=== PATIENT | female | born 1955 | race Caucasian/White ===

== ENCOUNTER 2020-02-07 14:07 | Outpatient (CLI) | payer MEDICARE, SELFPAY ==
--- NOTE | 2020-02-07 14:31 | ECG_ITS ---
Measurements Intervals [place] Rate: 70 P: 56 KS: 149 QRS: 80 QRSD: 81 T: 45 QT: 365 QTc: 396 Interpretive Statements SINUS RHYTHM BASELINE ARTIFACT- I, III, AVF NORMAL ECG Electronically Signed On 02-07-2020 15:07:23 QUANTITATIVE MANAGER by Eddie Cotter D.O.
== END 2020-02-07 14:08 | disposition home or self-care (01) ==
LOC: ANHCARD 14:11
PROVIDERS: PCP Emergency Medicine; Visit Provider Emergency Medicine
DX: Z01.810 Encounter for preprocedural cardiovascular examination (principal)
CPT/HCPCS: 93005

== ENCOUNTER → 2020-04-30 18:04 | Outpatient (CLI) | payer MEDICARE, SELFPAY ==
--- NOTE | ~2020-04-30 | DEXA_ITS ---
Bone Density Report Name: Naomi Mccall Age: 65 Sex: Female Ethnicity: White Date of : 1955 Indication: postmenopausal; screening for osteoporosis; Referring Provider: YANG AVILEZ Study: Bone densitometry was performed. Exam Date: April 30, 2020 Accession number: [id number] Bone Density: Region BMD T-score Z-score Classification AP Spine (L1-L4) 0.901 -1.3 0.6 Osteopenia Femoral Neck (Left) 0.761 -0.8 0.8 Normal Total Hip (Left) 0.873 -0.6 0.8 Normal Femoral Neck (Right) 0.732 -1.1 0.6 Osteopenia Total Hip (Right) 0.823 -1.0 0.4 Normal Total Hip Mean 0.848 -0.8 0.6 Normal World Health Organization criteria for BMD impression classify patients as: Normal (T-score at or above -1.0), Osteopenia (T-score between -1.0 and -2.5), or Osteoporosis (T-score at or below -2.5). 10-year Fracture Risk(1): Major Osteoporotic Fracture 8.5% Hip Fracture 0.8% Reported Risk Factors: [place] (), Neck BMD=0.732, BMI=24.1 (1) FRAX(R) Version 3.08. Fracture probability calculated for an untreated patient. Fracture probability may be lower if the patient has received treatment. Clinical Information Provided by Patient: Has used the following medications: Vitamin D, Calcium Patient maximum height was 65 Menopause Age: 51 Drinks caffeinated beverages Onset of menses at age 11 Number of children 3 Impression: The patient has low bone mass, based on the Total Spine T-score. The patient has an estimated ten-year risk of hip fracture of 0.8% and an estimated ten-year risk of major fracture of 8.5%, based on the WHO FRAX algorithm. Discussion: BONE DENSITY IS LOW AT ONE OR MORE SKELETAL SITES. This patient's lowest T-score is low at one or more skeletal sites. It meets the World Health Organization's (WHO) criteria for ?low bone mass? (T-score between -1.0 and -2.5). The patient's 10-year risk of fracture as calculated by FRAX is less than the threshold where pharmacological therapy is recommended by the National Osteoporosis Foundation (NOF). However, all treatment decisions require clinical judgment and consideration of individual patient factors, including patient preferences, comorbidities, previous drug use, risk factors not captured in the FRAX model (e.g., frailty, falls, vitamin D deficiency, increased bone turnover, interval significant decline in bone density) and possible under or overestimation of fracture risk by FRAX. The patient should follow a healthful lifestyle (good nutrition with adequate calcium and vitamin D, and appropriate weight-bearing exercise). Follow-Up: Consider repeating this study in 2 to 3 years to reassess this patient's status, or sooner if there is some new clinical indication. Reported by: [facility] on 04/30/2020 6:32:00 PM.
== END ==
PROVIDERS: Visit Provider Emergency Medicine
DX: Z13.820 Encounter for screening for osteoporosis (principal); M85.851 Other specified disorders of bone density and structure, right thigh
CPT/HCPCS: 77080

== ENCOUNTER → 2020-06-13 01:10 | Outpatient (CLI) | payer MEDICARE, SELFPAY ==
[2020-06-13 18:53] LABS: SARS-CoV-2 RNA PCR Positive
== END ==
PROVIDERS: Visit Provider Internal Medicine Gastroenterology
DX: Z01.812 Encounter for preprocedural laboratory examination (principal); U07.1 COVID-19
CPT/HCPCS: C9803; U0003; U0005

== ENCOUNTER 2020-06-16 01:59 | Day surgery (SDC) | payer MEDICARE, SELFPAY ==
[2020-06-04 10:29] VITALS: BMI 23.8
[2020-06-16 07:21] VITALS: BP 123/82; PULSE 91; RESP 16; TEMP 36.3; O2SAT 98; BMI 23.3
[2020-06-16] MEDS: LACTATED RINGERS 1,000 ML 150 ML IV CONT (07:36)
--- NOTE | 2020-06-16 07:57 | WPDANESEPPF ---
Anes - Initial Pre Proc Eval Procedure: Operation Date: 06/16/20 08:30 Proposed Procedures p Colonoscopy - Ravi Headley MD Date/Time: 06/16/20 07:57 Surgeon: Ravi Headley MD Pre Op Diagnosis: positive Cologuard Patient Data Age: 65 Gender: F Height: 5 ft 5 in Weight: 63.7 kg Last Vital Signs Temp 97.4 F L 06/16/20 07:21 Pulse 91 06/16/20 07:21 Resp 16 06/16/20 07:21 BP 123/82 06/16/20 07:21 Pulse Ox 98 06/16/20 07:21 Allergies Allergy/AdvReac Type Severity Reaction Status Date / Time Penicillins Allergy Mild RASH Verified 06/16/20 07:20 Home Medications Medication Instructions Recorded Confirmed Type Adult Probiotic 1 tab-cap PO DAILY 06/04/20 06/04/20 History [id number]-rbsr-wrm-[id number]-agb 1 tablet PO DAILY 06/04/20 06/04/20 History [Caltrate 600-D Plus Minerals] estradiol 3 applic VAGINAL WEEKLY 06/04/20 06/04/20 History krill oil 50 mg PO DAILY 06/04/20 06/04/20 History melatonin 5 mg PO HS 06/04/20 06/04/20 History kxoldfac-khd-ppgm-FA-lutein 1 tablet PO DAILY 06/04/20 06/04/20 History [Centrum Silver Women] spironolactone 100 mg PO DAILY 06/04/20 06/04/20 History tretinoin 1 applic TOPICAL DAILY 06/04/20 06/04/20 History valerian root 1,590 mg PO HS 06/04/20 06/04/20 History vitamin B complex [Super B Complex] 1 cap PO DAILY 06/04/20 06/04/20 History Patient hx anesthesia problems: none Family hx anesthesia problems: none PMFSH Past Medical History Medical History (Updated 06/16/20 @ 07:57 by Raman Gilbert MD) Arthritis Social History Social History Smoking packs per day: 1 Smoking cigarettes per day: 20.0 Years smoked: 7 Smoking pack-years: 7.00 Smoking status: Former smoker Tobacco type: cigarettes Alcohol intake: current Drinks per week: 6 Alcohol use details: WINE Substance use: never Substance use type: does not use Living arrangements: with family Spiritual care concerns: No Anes - Eval Final PreProcedure Day of Procedure 06/16/20 07:57 Patient weight: normal Heart: regular rate and rhythm Lungs: clear to auscultation Airway: Mallampati scale class II Neurological: alert and oriented Last oral intake: >/= 8 hours ASA classification: II Emergent: no Anesthetic plan: proceed Anesthesia type and monitoring: general GIVS and standard monitoring Informed Consent: The patient's anesthetic plan and its attendant risks and benefits were discussed with the patient/family/POA. Questions were solicited and answers provided to the satisfaction of the patient/family/POA.
--- NOTE | 2020-06-16 08:23 | PM.HPGS ---
History of Present Illness History of Present Illness Consent: Risks, benefits, and alternatives have been discussed and questions answered. Patient agrees to proceed with procedure. Chief complaint: positive Cologuard Narrative: Naomi Mccall is a 65 year old female with positive cologuard, last colonoscopy 2016 Review of Systems Constitutional: Constitutional: Denies headache(s) and Denies weakness Eyes: Eyes: Denies blurry vision ENT: Reports Normal hearing present, Denies headache(s) and Denies neck pain Cardiovascular: Cardiovascular: Denies chest pain and Denies dyspnea Respiratory: Respiratory: Denies dyspnea Gastrointestinal: Gastrointestinal: Reports no additional gastrointestinal complaints Genitourinary: Genitourinary: Denies dysuria Musculoskeletal: Musculoskeletal: Denies neck pain Integumentary/Breasts: Skin/Breast: Denies dry skin Neurologic: Reports Normal hearing present, Denies headache(s) and Denies weakness Psychiatric: Psychiatric: Denies anxiety Endocrine: Endocrine: Denies change in body appearance Hematologic/Lymphatic: Hematologic/Lymphatic: Denies easy bleeding Allergic/Immunologic: Allergic/Immunologic: Denies urticaria PMFSH Past Medical History Medical History (Updated 06/16/20 @ 08:24 by Ravi Headley MD) Arthritis Positive colorectal cancer screening using Cologuard test Social History Social History Smoking packs per day: 1 Smoking cigarettes per day: 20.0 Years smoked: 7 Smoking pack-years: 7.00 Smoking status: Former smoker Tobacco type: cigarettes Alcohol intake: current Drinks per week: 6 Alcohol use details: WINE Substance use: never Substance use type: does not use Living arrangements: with family Spiritual care concerns: No Meds Home Medications and Allergies Home Medications Medication Instructions Recorded Confirmed Type Adult Probiotic 1 tab-cap PO DAILY 06/04/20 06/04/20 History [id number]-ektx-ubx-[id number]-[id number] 1 tablet PO DAILY 06/04/20 06/04/20 History [Caltrate 600-D Plus Minerals] estradiol 3 applic VAGINAL WEEKLY 06/04/20 06/04/20 History krill oil 50 mg PO DAILY 06/04/20 06/04/20 History melatonin 5 mg PO HS 06/04/20 06/04/20 History waeqioik-kvy-dylt-FA-lutein 1 tablet PO DAILY 06/04/20 06/04/20 History [Centrum Silver Women] spironolactone 100 mg PO DAILY 06/04/20 06/04/20 History tretinoin 1 applic TOPICAL DAILY 06/04/20 06/04/20 History valerian root 1,590 mg PO HS 06/04/20 06/04/20 History vitamin B complex [Super B Complex] 1 cap PO DAILY 06/04/20 06/04/20 History Allergies Allergy/AdvReac Type Severity Reaction Status Date / Time Penicillins Allergy Mild RASH Verified 06/16/20 07:20 Vital Signs Vital Signs - 24 hr 06/16/20 07:21 Temperature 97.4 F L Pulse Rate 91 Respiratory Rate 16 Blood Pressure 123/82 Pulse Oximetry 98 Exam Const: General: comfortable and no acute distress HENMT: General nose exam: Normal nares present Eyes: General: appearance normal, both eyes and all related structures Neck: Neck: no JVD Resp: Auscultation: clear to auscultation bilaterally Cardio: Rate: regular rate Rhythm: regular rhythm GI: Inspection: non-distended GI Palp: Yes Soft to palpation Skin: General skin exam: normal color Neuro: General: gait normal Speech: normal speech Extrem: General: normal to inspection Psych: Mental Status: mental status grossly normal Assessment and Plan Assessment and plan (1) Positive colorectal cancer screening using Cologuard test: Code(s): R19.5 - Other fecal abnormalities Status: Acute Assessment and Plan: colonoscopy
[2020-06-16 08:45] VITALS: BP 100/55; PULSE 72; RESP 18; O2SAT 99
[2020-06-16 08:55] VITALS: BP 106/74; PULSE 67; RESP 14; O2SAT 99
[2020-06-16 09:05] VITALS: BP 113/76; PULSE 666; RESP 14; O2SAT 98
== END 2020-06-16 09:23 | disposition home or self-care (01) ==
PROVIDERS: PCP Emergency Medicine; Visit Provider Internal Medicine Gastroenterology
PROC: 0DJD8ZZ Inspection of Lower Intestinal Tract, Via Natural or Artificial Opening Endoscopic (ICD-10-PCS; CPT 45378; principal; 2020-06-16 08:30)
DX: R19.5 Other fecal abnormalities (principal); K57.30 Diverticulosis of large intestine without perforation or abscess without bleeding; K64.8 Other hemorrhoids; Z87.891 Personal history of nicotine dependence; M19.90 Unspecified osteoarthritis, unspecified site
CPT/HCPCS: 45378; C9803; J2704; J7120; U0003; U0005

== ENCOUNTER → 2020-09-29 10:37 | Outpatient (CLI) | payer MEDICARE, SELFPAY ==
--- NOTE | ~2020-09-29 | XR_ITS ---
EXAMINATION: XR foot RT min 3V DATE: 09/29/2020 11:07 INDICATION: Right foot pain TECHNIQUE: Dorsoplantar, lateral, and 2 oblique views of the right foot were obtained. COMPARISON: None. FINDINGS: There is no fracture, dislocation, or subluxation. The bones, soft tissues, and joint space s are normal. IMPRESSION: 1. No acute osseous abnormality. Reviewed, dictated and finalized at location A.
--- NOTE | ~2020-09-29 | XR_ITS ---
EXAMINATION: XR ankle RT min 3V INDICATION: Right ankle pain TECHNIQUE: Four views of the right ankle are obtained. COMPARISON: None available FINDINGS: Mild ankle soft tissue swelling is noted. There is no fracture, dislocation, or subluxation . The bones and joint spaces are normal. IMPRESSION: 1. Mild ankle soft tissue swelling without acute osseous abnormality. Reviewed, dictated and finalized at location A.
== END ==
PROVIDERS: PCP Emergency Medicine; Visit Provider Emergency Medicine
DX: M79.89 Other specified soft tissue disorders (principal); M79.671 Pain in right foot
CPT/HCPCS: 73610; 73630

== ENCOUNTER → 2021-01-05 11:06 | Outpatient (CLI) | payer MEDICARE, SELFPAY ==
--- NOTE | ~2021-01-05 | CT_ITS ---
EXAMINATION: CT abdomen pelvis wo/w con DATE: 01/05/2021 11:45 INDICATION: Gross hematuria TECHNIQUE: Computed tomography (CT) of the abdomen and pelvis was performed without intravenous contr ast. CT of the abdomen and pelvis was then performed with a total of 130 mL Omnipaque 350 intravenous contrast using a double-bolus technique for simultaneous opacification of the renal parenchyma and r enal collecting system. The dose-length product (DLP) was 1098.61 mGy-cm. Automated exposure control and iterative reconstruction technique were employed. COMPARISON: None FINDINGS: Minimal dependent atelectasis is present in the lung bases. The heart size is normal. The l iver, spleen, pancreas, gallbladder, and adrenal glands are normal. No stones are identified in the k idneys, ureters, or bladder. There is no hydronephrosis or hydroureter. There is a 3.8 cm cyst of the right kidney. No suspicious renal or urothelial lesion is identified. A portion of the distal right ureter does not opacify however there is normal opacification near the ureterovesicular junction and no obstructing lesion is seen. No pathologically enlarged abdominal or pelvic lymph nodes are identif ied. There is no free intraperitoneal gas or evidence of bowel obstruction. There is severe lower lum bar spondylosis. A fat-containing umbilical hernia is noted. IMPRESSION: 1. No CT correlate for the patient's symptoms. Reviewed, dictated and finalized at location B.
[2021-01-05 11:21] LABS: Estimated Glomerular Filt Rate > 60
== END ==
PROVIDERS: PCP Emergency Medicine; Visit Provider Emergency Medicine
DX: R31.9 Hematuria, unspecified (principal)
CPT/HCPCS: 74178; Q9967

== ENCOUNTER 2021-01-06 16:12 | Outpatient (CLI) | payer MEDICARE, SELFPAY ==
[2021-01-06 17:11] LABS: Add Urine Microscopic? YES; Appearance Urine Clear (Clear); Bacteria Urine Trace /hpf; Bilirubin Urine Negative (Negative); Blood Urine Negative (Negative); Color Urine Yellow (Yellow); Glucose Urine UA 1+ mg/dL (Negative); Ketones Urine Negative (Negative); Leukocyte Esterase Ur Negative LEU/UL (Negative); Mucus Urine Rare /lpf; Nitrate Urine Negative (Negative); Protein Urine Negative (Negative); RBC Urine 0-2 /hpf (0-2); Specific Grav Ur 1.017 (1.001-1.035); Squamous Epithelial Cell Urine Rare /hpf (Few); Urobilinogen Urine Negative mg/dL (<2.0); WBC Urine 0-3 /hpf
== END 2021-01-06 16:13 | disposition home or self-care (01) ==
LOC: ANHLAB 16:16
PROVIDERS: PCP Emergency Medicine; Visit Provider Emergency Medicine
DX: R31.9 Hematuria, unspecified (principal); R80.9 Proteinuria, unspecified
CPT/HCPCS: 81001; 88108

== ENCOUNTER → 2021-02-05 12:30 | Outpatient (CLI) | payer MEDICARE, SELFPAY ==
--- NOTE | ~2021-02-05 | XR_ITS ---
XR hip LT min 2V 02/05/2021 12:47 Indication: Left hip pain Procedure: 6 views left hip Comparison: No prior studies for comparison. Findings: No fracture, subluxation or dislocation. No significant soft tissue abnormality. No foreign bodies. Sacral foramen are symmetric. Impression: 1: No significant bone or joint abnormality Reviewed, dictated and finalized at location A. ICAL PUNCH OPERATOR Impression: 1: No significant bone or joint abnormality
== END ==
PROVIDERS: PCP Emergency Medicine; Visit Provider Emergency Medicine
DX: M25.552 Pain in left hip (principal)
CPT/HCPCS: 73502

== ENCOUNTER 2021-08-21 17:09 | Emergency (ER) | payer MEDICARE, SELFPAY ==
[2021-08-21 17:13] VITALS: BP 137/72; PULSE 81; RESP 16; TEMP 37.5; O2SAT 100
--- NOTE | 2021-08-21 17:27 | ED.GENADULT ---
HPI - General Adult General Chief complaint: Urogenital-Female Stated complaint: UTI SYMPTOMS Source: patient Mode of arrival: ambulatory Limitations: no limitations History of Present Illness HPI narrative: Patient presents for evaluation of urinary symptoms. Symptom onset today. She reports dysuria, urinary frequency, urgency, hesitancy, hematuria. She has some chronic low back pain but is not sure whether it is worse since the time of symptom onset. No fever, chills, nausea, vomiting, abdominal pain. Surgical history positive for . She had similar symptoms about twenty years ago and had a urinary tract infection at that time. No additional complaints or concerns. Related Data Home Medications Medication Instructions Recorded Confirmed Adult Probiotic 1 tab-cap PO DAILY 06/04/20 08/21/21 calcium 600 mg-D3 800 unit-mag11 1 tablet PO DAILY 06/04/20 08/21/21 50 jn-gxfu-jteqki-erica-s.borat tablet (Caltrate 600-D Plus Minerals) estradiol 0.01% (0.1 mg/gram) 3 applic vaginal WEEKLY 06/04/20 08/21/21 vaginal cream krill oil 500 mg capsule 50 mg PO DAILY 06/04/20 08/21/21 melatonin 5 mg tablet 5 mg PO HS 06/04/20 08/21/21 multivit with 1 tablet PO DAILY 06/04/20 08/21/21 igjixkrj-dxua-AX-lutein 8 mg iron-400 mcg-300 mcg tablet (Centrum Silver Women) spironolactone 100 mg tablet 100 mg PO DAILY 06/04/20 08/21/21 tretinoin 0.1 % topical cream 1 applic topical DAILY 06/04/20 08/21/21 vitamin B complex 1 cap PO DAILY 06/04/20 08/21/21 Allergies Allergy/AdvReac Type Severity Reaction Status Date / Time Penicillins Allergy Mild RASH Verified 08/21/21 17:14 Review of Systems Review of Systems: CONSTITUTIONAL: Denies fever, chills, or sweats. EYES: Denies visual changes, redness, or discharge. ENT: Denies rhinorrhea, congestion, sore throat, or otalgia. CARDIOVASCULAR: Denies chest pain, palpitations, or edema. RESPIRATORY: Denies cough or dyspnea. GASTROINTESTINAL: Denies abdominal pain, nausea, vomiting, or diarrhea. GENITOURINARY: Reports dysuria, urinary frequency, urgency, hesitancy and hematuria SKIN: Denies rash or itching. MUSCULOSKELETAL:Reports chronic low back pain. Denies joint pain, or myalgia. NEUROLOGIC: Denies headache, numbness, dizziness, or weakness. PSYCHIATRIC: Denies anxiety or depression. [facility] Past Medical History Medical History (Updated 08/21/21 @ 17:39 by Rafy Pickering, [facility], ) Arthritis Positive colorectal cancer screening using Cologuard test Surgical History Surgical History History of delivery Family History Family History (Updated 08/21/21 @ 17:40 by Rafy Pickering [facility], ) Mother Family history non-contributory Social History Social History Smoking packs per day: 1 Smoking cigarettes per day: 20.0 Years smoked: 7 Smoking pack-years: 7.00 Smoking status: Former smoker Tobacco type: cigarettes Alcohol intake: current Drinks per week: 6 Alcohol use details: WINE Substance use: never Substance use type: does not use Gender identity (if verbalized by the patient): Female Spiritual care concerns: No Exam Narrative: GENERAL: Well-appearing, well-nourished, and in no acute distress. HEAD: Normocephalic, atraumatic. EYES: PERRLA and EOMI. ENT: Nares clear, no rhinorrhea or epistaxis. Mucous membranes moist. Oropharynx without tonsillar hypertrophy exudate or other lesions. Bilateral TMs pearly villalta nonbulging NECK: Supple. No adenopathy or masses. No carotid bruits or JVD CHEST: Clear to auscultation. No respiratory distress. No wheezes rales or rhonchi HEART: Regular rate and rhythm. No murmur heard. Normal peripheral pulses. ABDOMEN: Soft, nontender, nondistended, normal active bowel sounds. EXTREMITIES: Normal range of motion. No edema. BACK: No CVA tenderness SKIN: Warm, dry, no
== END 2021-08-21 17:38 | disposition home or self-care (01) ==
PROVIDERS: Emergency Provider Nurse Practitioner; PCP Emergency Medicine
DX: N39.0 Urinary tract infection, site not specified (principal); Z87.891 Personal history of nicotine dependence; M19.90 Unspecified osteoarthritis, unspecified site
CPT/HCPCS: 81003; 87077; 87086; 87186; 99213; G0463

== ENCOUNTER 2023-02-15 08:54 | Emergency (ER) | payer MEDICARE, SELFPAY ==
[2023-02-15 09:06] VITALS: BP 111/83; PULSE 86; RESP 16; TEMP 37.3; O2SAT 100
--- NOTE | 2023-02-15 09:15 | ED.EAR ---
HPI - Ear Problem General Chief complaint: Ear Stated complaint: HEARING AID STUCK IN EAR Time Seen by Provider: 02/15/23 09:10 Source: patient Mode of arrival: ambulatory Limitations: no limitations History of Present Illness HPI Narrative: Ludivina is a 68-year-old female patient presenting to the clinic today with complaints of a rubber piece of her hearing aid stuck in her right ear canal. She reports that this came off last night when she was trying remove her hearing aid too quickly. Related Data Home Medications Medication Instructions Recorded Confirmed Adult Probiotic 1 tab-cap PO DAILY 06/04/20 08/21/21 calcium 600 mg-D3 800 unit-mag11 1 tablet PO DAILY 06/04/20 08/21/21 50 bp-xepg-qfihvs-erica-s.borat tablet (Caltrate 600-D Plus Minerals) estradiol 0.01% (0.1 mg/gram) 3 applic vaginal WEEKLY 06/04/20 08/21/21 vaginal cream krill oil 500 mg capsule 50 mg PO DAILY 06/04/20 08/21/21 melatonin 5 mg tablet 5 mg PO HS 06/04/20 08/21/21 sazkrpkh-nalx-sqpl 8 mg-folic 400 1 tablet PO DAILY 06/04/20 08/21/21 mcg-K 50 mcg-lutein 300 mcg tablet (Centrum Silver Women) tretinoin 0.1 % topical cream 1 applic topical DAILY 06/04/20 08/21/21 vitamin B complex 1 cap PO DAILY 06/04/20 08/21/21 Allergies Allergy/AdvReac Type Severity Reaction Status Date / Time Penicillins Allergy Mild RASH Verified 02/15/23 09:27 Review of Systems Review of Systems: Pertinent positives per HPI. Patient denies any fever, chills, rash, headache, visual changes, dizziness, cough, runny nose, sore throat, shortness of breath, chest pain, palpitations, nausea, vomiting, diarrhea, constipation, abdominal pain, or any urinary issues. [facility] Past Medical History Medical History Arthritis Positive colorectal cancer screening using Cologuard test Surgical History Surgical History History of delivery Family History Family History Mother Family history non-contributory Social History Social History Smoking packs per day: 1 Smoking cigarettes per day: 20.0 Years smoked: 7 Smoking pack-years: 7.00 Smoking status: Former smoker Tobacco type: cigarettes Alcohol intake: current Drinks per week: 6 Alcohol use details: WINE Substance use: never Substance use type: does not use Living arrangements: with family Gender identity (if verbalized by the patient): Female Spiritual care concerns: No Comments At the time of my signature, I reviewed and agree with the nursing past medical, surgical, social, and family history. There is no relevant family history pertinent to the patient complaint. Exam Narrative: General: Well-developed, well nourished, in no apparent distress Head: Normocephalic, atraumatic Eyes: Pupils equally round and reactive to light bilaterally, EOM intact, sclera and conjunctive clear, no discharge, lids normal Ears: TMs intact and clear, rubber foreign body noted in the right ear canal, foreign body removed using alligator forceps, ear canals clear, no drainage, grossly hearing normal. Nose: Nares patent, no discharge, no inflammation, no sinus tenderness. Mouth: Oropharynx without lesions or masses, good dentition, MMM. Neck: Supple, trachea midline, no enlargement of anterior or posterior cervical nodes, no thyroid masses or goiter palpable. Cardio: Regular rate and rhythm, s1 and s2 normal, no murmur appreciated. Resp: Clear to auscultation bilaterally anteriorly and posteriorly, no rhonchi, rales, wheezing or rubs Course Course Emergency Course: Portions of this record may have been created with voice recognition software. Level of Care: Express Care Visit Vital Signs Vital signs: Vital Signs Temperature 37.3 C
--- NOTE | 2023-02-15 09:22 | PC.NURSE ---
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
== END 2023-02-15 09:25 | disposition home or self-care (01) ==
PROVIDERS: Emergency Provider Nurse Practitioner Family; PCP Emergency Medicine
DX: T16.1XXA Foreign body in right ear, initial encounter (principal); W44.G1XA Audio device entering into or through a natural orifice, initial encounter; Z87.891 Personal history of nicotine dependence; M19.90 Unspecified osteoarthritis, unspecified site
CPT/HCPCS: 69200; 99212; G0463

== ENCOUNTER 2023-07-08 10:47 | Emergency (ER) | payer MEDICARE, SELFPAY ==
--- NOTE | 2023-07-08 10:52 | ED.FEMALEGU ---
HPI - Female Genitourinary General Chief complaint: Urogenital-Female Stated complaint: BURNING URINATION/BLOOD IN URINE Time Seen by Provider: 07/08/23 11:10 Source: patient and RN notes reviewed Mode of arrival: ambulatory Limitations: no limitations History of Present Illness HPI Narrative: 68-year-old female presents with concern for urinary urgency, burning, hematuria, suprapubic discomfort. Reports symptoms started today. She denies fever, body aches, chills, sweats. MD elicited complaint: UTI Related Data Home Medications Medication Instructions Recorded Confirmed Adult Probiotic 1 tab-cap PO DAILY 06/04/20 07/08/23 calcium 600 mg-D3 800 unit-mag11 1 tablet PO DAILY 06/04/20 07/08/23 50 uw-hwna-avzzzx-erica-s.borat tablet (Caltrate 600-D Plus Minerals) krill oil 500 mg capsule 50 mg PO DAILY 06/04/20 07/08/23 awlbcynj-wfgt-tzxo 8 mg-folic 400 1 tablet PO DAILY 06/04/20 07/08/23 mcg-K 50 mcg-lutein 300 mcg tablet (Centrum Silver Women) tretinoin 0.1 % topical cream 1 applic topical DAILY 06/04/20 07/08/23 vitamin B complex 1 cap PO DAILY 06/04/20 07/08/23 rosuvastatin 10 mg tablet 10 mg PO DAILY 07/08/23 07/08/23 spironolactone 100 mg tablet 100 mg PO DAILY 07/08/23 07/08/23 Allergies Allergy/AdvReac Type Severity Reaction Status Date / Time Penicillins Allergy Mild RASH Verified 07/08/23 11:01 Review of Systems Review of Systems: CONSTITUTIONAL: Denies malaise, chills, sweats, or fever. CARDIOVASCULAR: Denies chest pain, palpitations, or edema. RESPIRATORY: Denies cough or dyspnea. GASTROINTESTINAL: Denies abdominal pain, nausea, vomiting, diarrhea GENITOURINARY: Reports dysuria, frequency, urgency, suprapubic pressure. Denies flank pain or hematuria. SKIN: Denies rash or itching. MUSCULOSKELETAL: Denies back pain or myalgia. All systems reviewed & are unremarkable except as noted in HPI and below PMFSH Past Medical History Medical History Arthritis Positive colorectal cancer screening using Cologuard test Surgical History Surgical History History of delivery Family History Family History Mother Family history non-contributory Social History Social History Smoking packs per day: 1 Smoking cigarettes per day: 20.0 Years smoked: 7 Smoking pack-years: 7.00 Smoking status: Former smoker Tobacco type: cigarettes Alcohol intake: current Drinks per week: 6 Alcohol use details: WINE Substance use: never Substance use type: does not use Living arrangements: with family Gender identity (if verbalized by the patient): Female Spiritual care concerns: No Comments At time of signature, agree with nursing past medical, surgical, social and family history. There is no relevant family history pertinent to the presenting complaint Exam Narrative: GENERAL: Well-appearing, well-nourished, and in no acute distress. HEAD: Normocephalic. EYES: PERRLA, conjunctivae clear. NECK: Supple. No lymphadenopathy CHEST: Clear to auscultation. No respiratory distress. HEART: Regular rate and rhythm. ABDOMEN: Soft, nontender upon palpation, nondistended, normal active bowel sounds, no palpable or pulsatile masses, no guarding. No CVA tenderness SKIN: Warm, dry, no rash. NEURO: Alert and oriented x3. PSYCH: Normal mood and affect Course Course Emergency Course: Patient is aware of diagnosis, understands and agrees to treatment plan. Anticipatory guidance given. Patient agrees to follow-up as directed and is aware of reasons to seek care at the emergency department. Portions of this record may have been created with voice recognition software Level of Care: Express Care Visit Vital Signs Vital signs: Reviewed. MDM
[2023-07-08 11:04] VITALS: BP 127/85; PULSE 80; RESP 16; TEMP 36.6; O2SAT 99
== END 2023-07-08 11:18 | disposition home or self-care (01) ==
PROVIDERS: Emergency Provider Nurse Practitioner; PCP Emergency Medicine
DX: N39.0 Urinary tract infection, site not specified (principal); M19.90 Unspecified osteoarthritis, unspecified site; Z87.891 Personal history of nicotine dependence
CPT/HCPCS: 81003; 87086; 87088; 99213; G0463

== ENCOUNTER 2024-10-17 13:55 | Outpatient (CLI) | payer MEDICARE, SELFPAY ==
--- NOTE | ~2024-10-17 | DEXA_ITS ---
Bone Density Report Name: DELMIS FOSTER Age: 69 Sex: Female Ethnicity: White Date of : 1955 Indication: osteopenia; height loss; Referring Provider: YANG AVILEZ Study: Bone densitometry was performed. Exam Date: October 17, 2024 Accession number: [id number] Bone Density: Region BMD T-score Z-score Classification AP Spine(L1-L4) 0.923 -1.1 1.1 Osteopenia Femoral Neck (Left) 0.707 -1.3 0.6 Osteopenia Total Hip (Left) 0.810 -1.1 0.5 Osteopenia Femoral Neck (Right) 0.728 -1.1 0.8 Osteopenia Total Hip (Right) 0.814 -1.1 0.5 Osteopenia Total Hip Mean 0.812 -1.1 0.5 Osteopenia World Health Organization criteria for BMD impression classify patients as: Normal (T-score at or above -1.0), Osteopenia (T-score between -1.0 and -2.5), or Osteoporosis (T-score at or below -2.5). 10-year Fracture Risk(1): Major Osteoporotic Fracture 9.8% Hip Fracture 1.4% Reported Risk Factors: [place] (), Neck BMD=0.707, BMI=24.1 (1) FRAX(R) Version 3.08. Fracture probability calculated for an untreated patient. Fracture probability may be lower if the patient has received treatment. Previous Exams: -- Region Exam Age BMD T-score BMD Change BMD Change Date g/cm2 vs Baseline vs Previous -- AP Spine (L1-L4) 10/17/2024 69 0.923 -1.1 2.4% 2.4% 04/30/2020 65 0.901 -1.3 Total Hip(Left) 10/17/2024 69 0.810 -1.1 -7.3%* -7.3%* 04/30/2020 65 0.873 -0.6 Total Hip(Right) 10/17/2024 69 0.814 -1.1 -1.1% -1.1% 04/30/2020 65 0.823 -1.0 -- *Denotes significance at 95% confidence level, LSC for AP Spine = 0.022 g/cm2, LSC for Total Hip = 0.027 g/cm2 Clinical Information Provided by Patient: Has used the following medications: Vitamin D, Calcium Patient maximum height was 65 Menopause Age: 51 No regular weight bearing exercise Drinks caffeinated beverages Onset of menses at age 11 Number of children 2 Impression: The patient has low bone mass, based on the Left Femoral Neck T-score. The patient has an estimated ten-year risk of hip fracture of 1.4% and an estimated ten-year risk of major fracture of 9.8%, based on the WHO FRAX algorithm. The BMD for the Total Hip(Left) decreased, changing by -7.3% since the last DXA exam. Discussion: BONE DENSITY IS LOW AT ONE OR MORE SKELETAL SITES. This patient's lowest T-score is low at one or more skeletal sites. It meets the World Health Organization's (WHO) criteria for ?low bone mass? (T-score between -1.0 and -2.5). The patient's 10-year risk of fracture as calculated by FRAX is less than the threshold where pharmacological therapy is recommended by the National Osteoporosis Foundation (NOF). However, all treatment decisions require clinical judgment and consideration of individual patient factors, including patient preferences, comorbidities, previous drug use, risk factors not captured in the FRAX model (e.g., frailty, falls, vitamin D deficiency, increased bone turnover, interval significant decline in bone density) and possible under or overestimation of fracture risk by FRAX. The patient should follow a healthful lifestyle (good nutrition with adequate calcium and vitamin D, and appropriate weight-bearing exercise). Follow-Up: Consider repeating this study in 2 years to reassess this patient's status, or sooner if there is some new clinical indication. Reported by: CHAUNCEY on 10/17/2024 2:22:00 PM. Reviewed, dictated and finalized at location A.
== END 2024-10-17 13:56 | disposition home or self-care (01) ==
LOC: MICIMG 13:56
PROVIDERS: PCP Emergency Medicine; Visit Provider Emergency Medicine
DX: M85.89 Other specified disorders of bone density and structure, multiple sites (principal); Z78.0 Asymptomatic menopausal state
CPT/HCPCS: 77080